=== PATIENT | female | born 1995 | race African-American/Black ===

== ENCOUNTER → 2020-04-13 | Outpatient (CLI) | payer MEDICAID ==
[2020-04-13 16:37] LABS: Basophils # (auto) 0 10 ^3/uL (0-0.2); Eosinophils # (auto) 0.1 10 ^3/uL (0-0.8); Lymphocytes # (auto) 1.5 10 ^3/uL (0.4-5.4); Monocytes # (auto) 0.3 10 ^3/uL (0-1.3); Nucleated Red Blood Cells % 0.1 %; Red Blood Cells 4.67 10^6/uL (4.0-5.20)
[2020-04-13 16:39] LABS: Basophils % (auto) 0.9 % (0.0-2.0); Eosinophils % (auto) 1.2 % (0.0-7.0); Hematocrit 28.6 % (36.0-46.0); Lymphocytes % (auto) 26.7 % (10.0-50.0); Mean Corpuscular Hemoglobin 19.2 pg (28.0-32.0); Mean Corpuscular Hgb Conc. 31.4 g/dL (32.0-36.0); Mean Corpuscular Volume 61.1 fL (80.0-100.0); Monocytes % (auto) 4.6 % (0.0-12.0); Neutrophils # (auto) 3.9 10 ^3/uL (1.6-8.6); Neutrophils % (auto) 66.6 % (37.0-80.0); Platelet Count (auto) 319 10^3/uL (140-450); White Blood Cell 5.8 10^3/uL (4.4-10.8)
[2020-04-13 16:47] LABS: Red Cell Distribution Width 22.5 % (11.8-14.3)
[2020-04-13 17:18] LABS: Alcohol, Urine < 3.0 mg/dL (0-10); Amphetamine Screen, Urine NEGATIVE (NEGATIVE); Barbiturate Scree,Urine NEGATIVE (NEGATIVE); Benzodiazephine Screen, Urine NEGATIVE (NEGATIVE); Cannabinoid Screen, Urine NEGATIVE (NEGATIVE); Cocaine Screen, Urine NEGATIVE (NEGATIVE); Opiate Scree,Urine NEGATIVE (NEGATIVE); Phencyclidine Screen, Urine NEGATIVE (NEGATIVE)
[2020-04-14 05:07] LABS: RPR Non Reactive (Non Reactive)
== END | disposition home or self-care (01) ==
LOC: LAB 15:56
PROVIDERS: ATTEND Obstetrics & Gynecology
DX: Z34.00 Encounter for supervision of normal first pregnancy, unspecified trimester (principal); Z31.430 Encounter of female for testing for genetic disease carrier status for procreative management; Z20.2 Contact with and (suspected) exposure to infections with a predominantly sexual mode of transmission; Z3A.00 Weeks of gestation of pregnancy not specified
CPT/HCPCS: 36415; 80307; 81220; 83036; 84112; 84702; 85025; 86592; 86703; 86762; 86850; 86900; 86901; 87086; 87340

== ENCOUNTER 2020-06-26 23:31 | Emergency (ER) | payer MEDICAID ==
[~2020-06-26] VITALS: Ht 160 cm; Wt 75.3 kg
[2020-06-27 00:34] LABS: Basophils # (auto) 0 10 ^3/uL (0-0.2); Basophils % (auto) 0.2 % (0.0-2.0); Eosinophils # (auto) 0 10 ^3/uL (0-0.8); Eosinophils % (auto) 0.1 % (0.0-7.0); Lymphocytes # (auto) 0.4 10 ^3/uL (0.4-5.4); Monocytes # (auto) 0.4 10 ^3/uL (0-1.3)
[2020-06-27 00:36] LABS: Hematocrit 28.5 % (36.0-46.0); Hemoglobin 9.2 g/dL (12.2-16.2); Lymphocytes % (auto) 5.4 % (10.0-50.0); Mean Corpuscular Hemoglobin 20.8 pg (28.0-32.0); Mean Corpuscular Hgb Conc. 32.2 g/dL (32.0-36.0); Mean Corpuscular Volume 64.7 fL (80.0-100.0); Monocytes % (auto) 6.5 % (0.0-12.0); Neutrophils # (auto) 5.8 10 ^3/uL (1.6-8.6); Neutrophils % (auto) 87.8 % (37.0-80.0); Nucleated Red Blood Cells % 0.1 %; Platelet Count (auto) 209 10^3/uL (140-450); Red Blood Cells 4.41 10^6/uL (4.0-5.20); White Blood Cell 6.6 10^3/uL (4.4-10.8)
[2020-06-27 00:39] LABS: Red Cell Distribution Width 20.9 % (11.8-14.3)
[2020-06-27 00:45] LABS: Urine Bacteria MANY /hpf (None Seen); Urine Blood Negative /uL (Negative); Urine Specific Gravity 1.006 (1.001-1.035); Urine WBC 215 /hpf (0 - 5); Urine WBC Clumps PRESENT /hpf (None Seen)
[2020-06-27 00:52] LABS: Albumin 3.3 g/dL (3.4-5.0); BUN/Creatinine Ratio 8.5; Calcium 9.1 mg/dL (8.5-10.1); Potassium 3.2 mmol/L (3.5-5.1)
[2020-06-27 00:55] LABS: Bilirubin, Total 0.4 mg/dL (0.2-1.0); Total Protein 8.1 g/dL (6.4-8.2)
[2020-06-27] MEDS ORDERED: SODIUM CHLORIDE 0.9% 1,000 ML IV ONE ×2 (07:15)
[2020-06-27] MEDS ORDERED: POTASSIUM EFFERVESENT TAB 25 MEQ PO ONE (07:30)
[2020-06-27 08:00] VITALS: BP 119/32
== END 2020-06-27 08:54 | disposition home or self-care (01) ==
LOC: ER 23:46
DX: O23.42 Unspecified infection of urinary tract in pregnancy, second trimester (principal); E87.6 Hypokalemia; E44.1 Mild protein-calorie malnutrition; E86.0 Dehydration; Z68.29 Body mass index [BMI] 29.0-29.9, adult; Z3A.20 20 weeks gestation of pregnancy
CPT/HCPCS: 36415; 80053; 81001; 84702; 85025; 96360; 96361

== ENCOUNTER 2020-08-03 12:41 | Inpatient (IN) | payer MEDICAID ==
[~2020-08-03] VITALS: Ht 160 cm; Wt 77.1 kg
[2020-08-03] MEDS ORDERED: CEFTRIAXONE SODIUM 2 GM in D5W 5% 50 ML IV ONE (13:30)
[2020-08-03 14:00] LABS: Urine Bacteria MOD /hpf (None Seen); Urine Blood 1+ /uL (Negative); Urine Mucus FEW (None Seen); Urine Specific Gravity 1.015 (1.001-1.035); Urine WBC 563 /hpf (0 - 5); Urine WBC Clumps PRESENT /hpf (None Seen)
[2020-08-03] MEDS: ACETAMINOPHEN 325 MG TAB PO PRN ×2 (14:24→19:43)
[2020-08-03 21:13] LABS: Basophils # (auto) 0 10 ^3/uL (0-0.2); Basophils % (auto) 0.3 % (0.0-2.0); Eosinophils # (auto) 0 10 ^3/uL (0-0.8); Monocytes # (auto) 0.9 10 ^3/uL (0-1.3); Red Cell Distribution Width 19.2 % (11.8-14.3)
[2020-08-03 21:15] LABS: Eosinophils % (auto) 0.1 % (0.0-7.0); Hematocrit 22.2 % (36.0-46.0); Hemoglobin 7.1 g/dL (12.2-16.2); Lymphocytes # (auto) 0.8 10 ^3/uL (0.4-5.4); Lymphocytes % (auto) 8.1 % (10.0-50.0); Mean Corpuscular Hemoglobin 20.4 pg (28.0-32.0); Mean Corpuscular Hgb Conc. 31.9 g/dL (32.0-36.0); Monocytes % (auto) 9.3 % (0.0-12.0); Neutrophils # (auto) 7.8 10 ^3/uL (1.6-8.6); Neutrophils % (auto) 82.2 % (37.0-80.0); Nucleated Red Blood Cells % 0.1 %; Platelet Count (auto) 327 10^3/uL (140-450); Red Blood Cells 3.47 10^6/uL (4.0-5.20); White Blood Cell 9.5 10^3/uL (4.4-10.8)
[2020-08-03] MEDS ORDERED: LACTATED RINGER'S 1,000 ML IV SCH (22:30)
[2020-08-03] MEDS ORDERED: PREN-96 PO (22:33)
[2020-08-03] MEDS ORDERED: FERROUS SULFATE 325 MG TAB PO ONE (22:45)
[2020-08-04] MEDS: ACETAMINOPHEN 325 MG TAB PO PRN (01:26)
[2020-08-04] MEDS ORDERED: SOD CHL 0.45% 1,000 ML IV SCH (06:30)
[2020-08-04] MEDS: LACTATED RINGER'S 1,000 ML IV SCH (06:56)
[2020-08-04] MEDS: FERROUS SULFATE 325 MG TAB PO SCH ×2 (07:43→18:42)
[2020-08-04] MEDS: SODIUM CHLORIDE 0.9% 1,000 ML IV SCH (07:44)
[2020-08-04] MEDS: cefTRIAXone 1GM/50ML D5W 50 ML IV SCH (07:44)
[2020-08-04] MEDS ORDERED: NIFEdipine 10 MG CAP PO ONE (08:30)
[2020-08-04] MEDS ORDERED: BETAMETHASONE ACET (6MG/ML) 5ML VIAL IM SCH (09:00)
[2020-08-04 09:42] LABS: Basophils # (auto) 0 10 ^3/uL (0-0.2); Basophils % (auto) 0.2 % (0.0-2.0); Eosinophils # (auto) 0 10 ^3/uL (0-0.8); Eosinophils % (auto) 0.1 % (0.0-7.0); Lymphocytes # (auto) 0.7 10 ^3/uL (0.4-5.4)
[2020-08-04 09:44] LABS: Hematocrit 23.9 % (36.0-46.0); Hemoglobin 7.4 g/dL (12.2-16.2); Lymphocytes % (auto) 8.4 % (10.0-50.0); Mean Corpuscular Hemoglobin 20.3 pg (28.0-32.0); Mean Corpuscular Hgb Conc. 31.2 g/dL (32.0-36.0); Mean Corpuscular Volume 65.2 fL (80.0-100.0); Monocytes # (auto) 0.6 10 ^3/uL (0-1.3); Monocytes % (auto) 6.3 % (0.0-12.0); Neutrophils # (auto) 7.4 10 ^3/uL (1.6-8.6); Nucleated Red Blood Cells % 0.1 %; Platelet Count (auto) 332 10^3/uL (140-450); Red Blood Cells 3.67 10^6/uL (4.0-5.20); Red Cell Distribution Width 19.4 % (11.8-14.3); White Blood Cell 8.8 10^3/uL (4.4-10.8)
[2020-08-04 10:02] LABS: Albumin 2.2 g/dL (3.4-5.0); Calcium 8.3 mg/dL (8.5-10.1)
[2020-08-04 10:07] LABS: BUN/Creatinine Ratio 4.8; Bilirubin, Total 0.3 mg/dL (0.2-1.0)
[2020-08-04 10:16] LABS: Potassium 2.7 mmol/L (3.5-5.1)
[2020-08-04] MEDS ORDERED: POTASSIUM CHL 20 Meq TABLET PO ONE (10:45)
[2020-08-04 12:06] VITALS: BP 107/59
[2020-08-04 12:25] VITALS: BP 107/57
[2020-08-04 14:40] VITALS: BP 116/63
[2020-08-04] MEDS: POTASSIUM CHL 20MEQ/100ML 100 ML IV SCH ×2 (15:18→17:22)
[2020-08-04 19:25] VITALS: BP 102/57
[2020-08-04 19:28] LABS: Basophils # (auto) 0 10 ^3/uL (0-0.2); Eosinophils # (auto) 0 10 ^3/uL (0-0.8); Hemoglobin 9.3 g/dL (12.2-16.2); Lymphocytes # (auto) 0.6 10 ^3/uL (0.4-5.4); Mean Corpuscular Volume 66.7 fL (80.0-100.0); Monocytes # (auto) 0.3 10 ^3/uL (0-1.3); Neutrophils # (auto) 8.5 10 ^3/uL (1.6-8.6); Nucleated Red Blood Cells % 0.1 %; White Blood Cell 9.4 10^3/uL (4.4-10.8)
[2020-08-04 19:30] LABS: Hematocrit 28.6 % (36.0-46.0); Lymphocytes % (auto) 6.7 % (10.0-50.0); Mean Corpuscular Hemoglobin 21.7 pg (28.0-32.0); Mean Corpuscular Hgb Conc. 32.5 g/dL (32.0-36.0); Monocytes % (auto) 3.2 % (0.0-12.0); Neutrophils % (auto) 90.1 % (37.0-80.0); Platelet Count (auto) 376 10^3/uL (140-450); Red Blood Cells 4.29 10^6/uL (4.0-5.20)
[2020-08-04 19:43] LABS: Red Cell Distribution Width 21.6 % (11.8-14.3)
[2020-08-04 19:49] LABS: Albumin 2.4 g/dL (3.4-5.0); Calcium 8.6 mg/dL (8.5-10.1); Potassium 3.6 mmol/L (3.5-5.1)
[2020-08-04 19:55] LABS: BUN/Creatinine Ratio 10.2; Bilirubin, Total 0.2 mg/dL (0.2-1.0); Total Protein 7.8 g/dL (6.4-8.2)
[2020-08-04 23:39] VITALS: BP 113/69
[2020-08-05] MEDS: LACTATED RINGER'S 1,000 ML IV SCH ×3 (00:55→08:33)
[2020-08-05 03:42] VITALS: BP 107/60
[2020-08-05] MEDS: cefTRIAXone 1GM/50ML D5W 50 ML IV SCH (07:15)
[2020-08-05] MEDS: SODIUM CHLORIDE 0.9% 1,000 ML IV SCH (07:16)
[2020-08-05] MEDS ORDERED: BETAMETHASONE ACET (6MG/ML) 5ML VIAL IM ONE (08:45)
[2020-08-05] MEDS: FERROUS SULFATE 325 MG TAB PO SCH (09:01)
== END 2020-08-05 09:50 | disposition home or self-care (01) | DRG 566 ==
LOC: LDRP 12:41 → OBSVTOIN 12:41 → LDRP 13:55
PROVIDERS: ADMIT Specialist; ATTEND Specialist
PROC: 30233N1 Transfusion of Nonautologous Red Blood Cells into Peripheral Vein, Percutaneous Approach (ICD-10-PCS; principal; 2020-08-04)
DX: O23.02 Infections of kidney in pregnancy, second trimester (principal); O99.282 Endocrine, nutritional and metabolic diseases complicating pregnancy, second trimester; Z3A.25 25 weeks gestation of pregnancy; E87.6 Hypokalemia; O99.012 Anemia complicating pregnancy, second trimester
CPT/HCPCS: 36415; 59025; 80053; 81001; 81002; 85025; 86850; 86900; 86901; 86920; 87086; 87088; 87186; 94760; 94762; 96360; 96361; 96365; 96366; 96372; G0378; J0696; J3480; J7060

== ENCOUNTER 2020-11-13 17:04 | Inpatient (IN) | payer MEDICAID ==
[~2020-11-13] VITALS: Ht 160 cm; Wt 85.3 kg
[~2020-11-13 17:04] MED LIST: PREN-96 PO
[2020-11-13] MEDS ORDERED: LACT. RINGERS/OXYTOCIN 20UNITS 1,000 ML IV ONE (20:30)
[2020-11-13] MEDS ORDERED: PHISODERM TOP SOLN 240ML BTL TOP PRN (20:30)
[2020-11-13] MEDS ORDERED: LIDOCAINE 2%HCL (LOCAL ANESTH.) INJ 20ML MDV IJ ONE (20:30)
[2020-11-13] MEDS ORDERED: WITCH HAZEL-GLYCERIN PAD TOP PRN (20:30)
[2020-11-13] MEDS ORDERED: ONDANSETRON HCL 4 MG/2 ML VIAL IV PRN (20:30)
[2020-11-13] MEDS ORDERED: DERMOPLAST 60ML BOTTLE TOP PRN (20:30)
[2020-11-13] MEDS: LACTATED RINGER'S 1,000 ML IV SCH ×2 (21:27→22:41)
[2020-11-13 21:42] LABS: Urine Bacteria NONE SEEN /hpf (None Seen); Urine Blood TRACE /uL (Negative); Urine Mucus FEW (None Seen); Urine Specific Gravity 1.013 (1.001-1.035); Urine WBC 4 /hpf (0 - 5)
[2020-11-13] MEDS ORDERED: NALOXONE HCL 0.4 MG/ML VIAL IV ONE ×2 (21:45→23:00)
[2020-11-13] MEDS ORDERED: LACTATED RINGER'S 1,000 ML IV ONE ×2 (21:45→23:00)
[2020-11-13] MEDS ORDERED: fentaNYL CITRATE 100 MCG/2 ML VL IV ONE ×2 (21:45→23:00)
[2020-11-13] MEDS ORDERED: ROPIVACAINE HCL 200 ML EPI SCH ×2 (21:45→23:00)
[2020-11-13] MEDS ORDERED: ePHEDrine SULFATE 50 MG/ML AMP IV ONE ×2 (21:45→23:00)
[2020-11-13] MEDS ORDERED: LIDOCAINE HCL 2 %PF INJ 10ML AMP IJ ONE ×2 (21:45→23:00)
[2020-11-13 21:50] LABS: Albumin 2.8 g/dL (3.4-5.0); Calcium 9.1 mg/dL (8.5-10.1); INR 0.99 (0.9-1.15); Partial Thromboplastin Time 31.4 sec (23.0-31.2); Potassium 3.5 mmol/L (3.5-5.1); Uric Acid 4.1 mg/dL (2.6-6.0)
[2020-11-13 21:54] LABS: BUN/Creatinine Ratio 15.2; Bilirubin, Total 0.4 mg/dL (0.2-1.0); Total Protein 7.8 g/dL (6.4-8.2)
[2020-11-13 21:55] LABS: Basophils # (auto) 0 10 ^3/uL (0-0.2); Eosinophils # (auto) 0 10 ^3/uL (0-0.8); Hemoglobin 12.1 g/dL (12.2-16.2); Lymphocytes # (auto) 0.9 10 ^3/uL (0.4-5.4); Monocytes # (auto) 0.3 10 ^3/uL (0-1.3); Red Blood Cells 4.57 10^6/uL (4.0-5.20)
[2020-11-13 21:57] LABS: Basophils % (auto) 0.1 % (0.0-2.0); Hematocrit 35.6 % (36.0-46.0); Lymphocytes % (auto) 9.4 % (10.0-50.0); Mean Corpuscular Hemoglobin 26.4 pg (28.0-32.0); Mean Corpuscular Volume 77.7 fL (80.0-100.0); Monocytes % (auto) 3.3 % (0.0-12.0); Neutrophils # (auto) 8.7 10 ^3/uL (1.6-8.6); Neutrophils % (auto) 87.2 % (37.0-80.0); Platelet Count (auto) 211 10^3/uL (140-450); Red Cell Distribution Width 18.3 % (11.8-14.3)
[2020-11-14] VITALS (18 sets, daily range): BP systolic 102–128; BP diastolic 59–84
[2020-11-14] MEDS ORDERED: fentaNYL CITRATE 100 MCG/2 ML VL IV ONE (03:30)
[2020-11-14] MEDS ORDERED: ceFAZolin 1GM/50ML 50 ML IV ONE ×2 (06:20→06:30)
[2020-11-14] MEDS ORDERED: MORPHINE SULF(PF) 0.5MG/ML 10ML VIAL ONE (06:38)
[2020-11-14] MEDS ORDERED: ePHEDrine SULFATE 50 MG/ML AMP ONE (06:38)
[2020-11-14] MEDS ORDERED: KETOROLAC TROMETH 30 MG/ML 1ML VIAL ONE (06:38)
[2020-11-14] MEDS ORDERED: oxyTOCIN 10 UNIT/ML 10ML VIAL ONE (06:38)
[2020-11-14] MEDS ORDERED: LIDOCAINE HCL 2 %PF INJ 10ML AMP IJ ONE (06:38)
[2020-11-14] MEDS ORDERED: ONDANSETRON HCL 4 MG/2 ML VIAL ONE (06:38)
[2020-11-14] MEDS ORDERED: GLYCOPYRROLATE 0.2 MG/ML 1ML VIAL ONE (06:38)
[2020-11-14] MEDS ORDERED: fentaNYL CITRATE 100 MCG/2 ML VL ONE (07:08)
[2020-11-14] MEDS ORDERED: MIDAZOLAM HCL 1MG/1ML-2 ML VIAL ONE (07:29)
[2020-11-14] MEDS ORDERED: ONDANSETRON HCL 4 MG/2 ML VIAL IV PRN ×3 (08:00→08:15)
[2020-11-14] MEDS ORDERED: GUM (CHEWING) 1 GUM CHEW CHEW ONE (08:00)
[2020-11-14] MEDS ORDERED: ACETAMINOPHEN IV 1000 MG/100ML (10MG/ML) IV PRN (08:00)
[2020-11-14] MEDS ORDERED: HYDROmorphone HCL 2 MG/ML VL IV PRN (08:00)
[2020-11-14] MEDS ORDERED: ceFAZolin 1GM/50ML 50 ML IV SCH (08:00)
[2020-11-14] MEDS ORDERED: KETOROLAC TROMETH 30 MG/ML 1ML VIAL IV PRN (08:15)
[2020-11-14] MEDS ORDERED: diphenhdrAMINE HCL 50 MG/1 ML VL IV PRN (08:15)
[2020-11-14] MEDS ORDERED: DexAMETHasone SOD PHOS 10MG/1ML VIAL INJ IV PRN (08:15)
[2020-11-14] MEDS ORDERED: NALOXONE HCL 0.4 MG/ML VIAL IV PRN (08:15)
[2020-11-14] MEDS ORDERED: NALBUPHINE HCL 10 MG/1ml INJECTION SUBCUT ONE (08:15)
[2020-11-14] MEDS: LACTATED RINGER'S 1,000 ML IV SCH ×3 (08:45→20:14)
[2020-11-14] MEDS: ceFAZolin 1GM/50ML 50 ML IV SCH ×2 (14:00→22:10)
[2020-11-14] MEDS ORDERED: ACETAMINOPHEN 325 MG TAB PO PRN (20:00)
[2020-11-14] MEDS ORDERED: HYDROcodone-ACET 5/325MG TAB PO PRN (20:00)
[2020-11-14] MEDS: IBUPROFEN 600 MG TAB PO PRN (22:11)
[2020-11-15] VITALS (36 sets, daily range): BP systolic 86–121; BP diastolic 37–75
[2020-11-15] MEDS: IBUPROFEN 600 MG TAB PO PRN (03:46)
[2020-11-15] MEDS: LACTATED RINGER'S 1,000 ML IV SCH (03:46)
[2020-11-15] MEDS: SODIUM CHLORIDE 0.9% 1,000 ML IV SCH ×2 (04:45→22:04)
[2020-11-15 05:07] LABS: RPR Non Reactive (Non Reactive)
[2020-11-15] MEDS: ceFAZolin 1GM/50ML 50 ML IV SCH (05:49)
[2020-11-15] MEDS ORDERED: HYDROcodone-ACET 5/325MG TAB PO PRN (06:45)
[2020-11-15] MEDS: IBUPROFEN 800 MG TAB PO PRN ×2 (07:08→14:51)
[2020-11-15 07:38] LABS: Basophils # (auto) 0 10 ^3/uL (0-0.2); Eosinophils # (auto) 0 10 ^3/uL (0-0.8); Hemoglobin 9.2 g/dL (12.2-16.2); Monocytes # (auto) 0.5 10 ^3/uL (0-1.3); White Blood Cell 8.1 10^3/uL (4.4-10.8)
[2020-11-15 07:40] LABS: Basophils % (auto) 0.1 % (0.0-2.0); Eosinophils % (auto) 0.2 % (0.0-7.0); Hematocrit 26.7 % (36.0-46.0); Lymphocytes # (auto) 0.9 10 ^3/uL (0.4-5.4); Lymphocytes % (auto) 11.1 % (10.0-50.0); Mean Corpuscular Hemoglobin 27.1 pg (28.0-32.0); Mean Corpuscular Hgb Conc. 34.4 g/dL (32.0-36.0); Mean Corpuscular Volume 78.8 fL (80.0-100.0); Monocytes % (auto) 6.6 % (0.0-12.0); Neutrophils # (auto) 6.7 10 ^3/uL (1.6-8.6); Platelet Count (auto) 149 10^3/uL (140-450); Red Blood Cells 3.39 10^6/uL (4.0-5.20); Red Cell Distribution Width 17.4 % (11.8-14.3)
[2020-11-15] MEDS: DOCUSATE SOD 100 MG CAP PO SCH ×2 (09:31→22:03)
[2020-11-15] MEDS: HYDROcodone-ACET 5/325MG TAB PO PRN ×2 (11:05→11:29)
[2020-11-15 16:06] LABS: Basophils # (auto) 0 10 ^3/uL (0-0.2); Eosinophils # (auto) 0 10 ^3/uL (0-0.8); Eosinophils % (auto) 0.2 % (0.0-7.0); Hemoglobin 9.4 g/dL (12.2-16.2); Lymphocytes # (auto) 0.6 10 ^3/uL (0.4-5.4); Monocytes # (auto) 0.5 10 ^3/uL (0-1.3); Neutrophils # (auto) 7.2 10 ^3/uL (1.6-8.6); White Blood Cell 8.4 10^3/uL (4.4-10.8)
[2020-11-15] MEDS: PIPERACILLIN-TAZOB 3.375GM 100 ML IV SCH ×2 (16:07→22:03)
[2020-11-15 16:09] LABS: Basophils % (auto) 0.2 % (0.0-2.0); Hematocrit 27.5 % (36.0-46.0); Lymphocytes % (auto) 7.7 % (10.0-50.0); Mean Corpuscular Hemoglobin 27.3 pg (28.0-32.0); Mean Corpuscular Hgb Conc. 34.2 g/dL (32.0-36.0); Mean Corpuscular Volume 79.8 fL (80.0-100.0); Monocytes % (auto) 5.6 % (0.0-12.0); Neutrophils % (auto) 86.3 % (37.0-80.0); Platelet Count (auto) 155 10^3/uL (140-450); Red Blood Cells 3.44 10^6/uL (4.0-5.20); Red Cell Distribution Width 17.6 % (11.8-14.3)
[2020-11-15] MEDS: ACETAMINOPHEN 325 MG TAB PO PRN ×2 (17:24→21:22)
[2020-11-16] VITALS (7 sets, daily range): BP systolic 109–129; BP diastolic 55–76
[2020-11-16] MEDS: IBUPROFEN 800 MG TAB PO PRN ×3 (01:30→17:50)
[2020-11-16] MEDS: ACETAMINOPHEN 325 MG TAB PO PRN ×3 (02:43→16:09)
[2020-11-16] MEDS: PIPERACILLIN-TAZOB 3.375GM 100 ML IV SCH ×4 (03:58→22:12)
[2020-11-16 05:07] LABS: Basophils # (auto) 0 10 ^3/uL (0-0.2); Basophils % (auto) 0.2 % (0.0-2.0); Eosinophils # (auto) 0 10 ^3/uL (0-0.8); Eosinophils % (auto) 0.2 % (0.0-7.0); Hematocrit 26.6 % (36.0-46.0); Lymphocytes # (auto) 0.6 10 ^3/uL (0.4-5.4); Mean Corpuscular Hemoglobin 27.1 pg (28.0-32.0); Mean Corpuscular Volume 79.6 fL (80.0-100.0); Monocytes # (auto) 0.5 10 ^3/uL (0-1.3); Monocytes % (auto) 5.6 % (0.0-12.0); Neutrophils # (auto) 7.5 10 ^3/uL (1.6-8.6); Platelet Count (auto) 148 10^3/uL (140-450); Red Blood Cells 3.34 10^6/uL (4.0-5.20); Red Cell Distribution Width 17.1 % (11.8-14.3); White Blood Cell 8.6 10^3/uL (4.4-10.8)
[2020-11-16] MEDS: SODIUM CHLORIDE 0.9% 1,000 ML IV SCH ×4 (06:56→22:13)
[2020-11-16] MEDS: DOCUSATE SOD 100 MG CAP PO SCH ×2 (09:43→22:12)
[2020-11-16 09:46] LABS: BUN/Creatinine Ratio 12.2; Calcium 7.5 mg/dL (8.5-10.1)
[2020-11-16] MEDS: POTASSIUM CHL 20MEQ/100ML 100 ML IV SCH ×2 (13:37→16:09)
[2020-11-17] MEDS ORDERED: IRON SUCROSE COMPLEX 200 MG in SODIUM CHL 0.9% 100 ML IV SCH (00:30)
[2020-11-17] MEDS: ACETAMINOPHEN 325 MG TAB PO PRN (02:42)
[2020-11-17 03:30] VITALS: BP 120/84
[2020-11-17] MEDS: PIPERACILLIN-TAZOB 3.375GM 100 ML IV SCH ×4 (04:00→22:14)
[2020-11-17] MEDS: SODIUM CHLORIDE 0.9% 1,000 ML IV SCH ×3 (07:15→22:18)
[2020-11-17] MEDS: IBUPROFEN 800 MG TAB PO PRN ×2 (07:20→17:55)
[2020-11-17 07:30] VITALS: BP 115/74
[2020-11-17] MEDS: DOCUSATE SOD 100 MG CAP PO SCH ×2 (10:00→22:14)
[2020-11-17] MEDS ORDERED: POTASSIUM CHL 20 Meq TABLET PO ONE (11:15)
[2020-11-17 11:30] VITALS: BP 121/67
[2020-11-17 15:00] VITALS: BP 125/75
[2020-11-17 19:30] VITALS: BP 129/75
[2020-11-17 23:00] VITALS: BP 116/65
[2020-11-18 03:00] VITALS: BP 128/80
[2020-11-18] MEDS: SODIUM CHLORIDE 0.9% 1,000 ML IV SCH (03:15)
[2020-11-18] MEDS: PIPERACILLIN-TAZOB 3.375GM 100 ML IV SCH ×3 (03:56→21:07)
[2020-11-18] MEDS: IBUPROFEN 800 MG TAB PO PRN ×2 (03:56→14:05)
[2020-11-18 04:54] LABS: Basophils # (auto) 0 10 ^3/uL (0-0.2); Basophils % (auto) 0.4 % (0.0-2.0); Eosinophils # (auto) 0.1 10 ^3/uL (0-0.8); Eosinophils % (auto) 2.7 % (0.0-7.0); Hematocrit 23.9 % (36.0-46.0); Hemoglobin 8.1 g/dL (12.2-16.2); Lymphocytes # (auto) 1.2 10 ^3/uL (0.4-5.4); Lymphocytes % (auto) 21.7 % (10.0-50.0); Mean Corpuscular Hgb Conc. 33.9 g/dL (32.0-36.0); Mean Corpuscular Volume 79.9 fL (80.0-100.0); Monocytes # (auto) 0.4 10 ^3/uL (0-1.3); Neutrophils # (auto) 3.6 10 ^3/uL (1.6-8.6); Neutrophils % (auto) 67.2 % (37.0-80.0); Nucleated Red Blood Cells % 0.1 %; Platelet Count (auto) 175 10^3/uL (140-450); Red Blood Cells 2.99 10^6/uL (4.0-5.20); White Blood Cell 5.3 10^3/uL (4.4-10.8)
[2020-11-18] MEDS ORDERED: VANCOMYCIN PER PHARMACY 0 MG IV SCH (07:15)
[2020-11-18] MEDS ORDERED: POTASSIUM CHL 20 Meq TABLET PO ONE (07:15)
[2020-11-18 07:25] VITALS: BP 132/80
[2020-11-18] MEDS ORDERED: VANCOMYCIN 1GM/250ML 250 ML IV ONE (07:45)
[2020-11-18] MEDS: DOCUSATE SOD 100 MG CAP PO SCH ×2 (10:00→21:57)
[2020-11-18] MEDS: MAGNESIUM SULFATE 1GM/100ML 100 ML IV SCH ×4 (11:11→15:14)
[2020-11-18 11:15] VITALS: BP 139/81
[2020-11-18 15:25] VITALS: BP 128/77
[2020-11-18] MEDS: POTASSIUM CHL 20MEQ/100ML 100 ML IV SCH ×2 (17:31→21:00)
[2020-11-18 19:00] VITALS: BP 142/90
[2020-11-18 23:00] VITALS: BP 131/55
[2020-11-19] MEDS: PIPERACILLIN-TAZOB 3.375GM 100 ML IV SCH ×2 (02:01→08:06)
[2020-11-19 03:00] VITALS: BP 143/79
[2020-11-19] MEDS: ACETAMINOPHEN 325 MG TAB PO PRN (03:38)
[2020-11-19] MEDS: SODIUM CHLORIDE 0.9% 1,000 ML IV SCH (04:33)
[2020-11-19 07:15] VITALS: BP 135/75
[2020-11-19 07:27] LABS: Basophils # (auto) 0 10 ^3/uL (0-0.2); Eosinophils # (auto) 0.1 10 ^3/uL (0-0.8); Lymphocytes # (auto) 1.1 10 ^3/uL (0.4-5.4); Monocytes # (auto) 0.4 10 ^3/uL (0-1.3)
[2020-11-19 07:29] LABS: Basophils % (auto) 0.3 % (0.0-2.0); Eosinophils % (auto) 1.9 % (0.0-7.0); Hematocrit 23.5 % (36.0-46.0); Lymphocytes % (auto) 20.1 % (10.0-50.0); Mean Corpuscular Hgb Conc. 34.1 g/dL (32.0-36.0); Mean Corpuscular Volume 79.2 fL (80.0-100.0); Neutrophils # (auto) 3.7 10 ^3/uL (1.6-8.6); Neutrophils % (auto) 69.7 % (37.0-80.0); Nucleated Red Blood Cells % 0.1 %; Platelet Count (auto) 199 10^3/uL (140-450); Red Blood Cells 2.96 10^6/uL (4.0-5.20); Red Cell Distribution Width 16.8 % (11.8-14.3); White Blood Cell 5.3 10^3/uL (4.4-10.8)
[2020-11-19 07:48] LABS: Calcium 8.4 mg/dL (8.5-10.1); Potassium 3.4 mmol/L (3.5-5.1)
[2020-11-19 07:53] LABS: BUN/Creatinine Ratio 15.8
[2020-11-19] MEDS ORDERED: POTASSIUM CHL 20 Meq TABLET PO ONE (08:00)
[2020-11-19] MEDS ORDERED: CEPH250C PO ×2 (09:22→09:23)
[2020-11-19] MEDS ORDERED: HYDR-4902 PO (09:27)
== END 2020-11-19 12:25 | disposition home or self-care (01) | DRG 540 ==
LOC: LDRP 17:04 → OBSVTOIN 20:20 → LDRP 20:21
PROVIDERS: ADMIT Specialist; ATTEND Specialist
PROC: 10D00Z1 Extraction of Products of Conception, Low, Open Approach (ICD-10-PCS; principal; 2020-11-14 07:00)
DX: O76 Abnormality in fetal heart rate and rhythm complicating labor and delivery (principal); O77.0 Labor and delivery complicated by meconium in amniotic fluid; D50.9 Iron deficiency anemia, unspecified; O99.02 Anemia complicating childbirth; O99.214 Obesity complicating childbirth; E66.01 Morbid (severe) obesity due to excess calories; O99.284 Endocrine, nutritional and metabolic diseases complicating childbirth; O26.53 Maternal hypotension syndrome, third trimester; E87.6 Hypokalemia; E83.42 Hypomagnesemia; Z20.822 Contact with and (suspected) exposure to COVID-19; Z37.0 Single live birth; Z3A.40 40 weeks gestation of pregnancy; B95.2 Enterococcus as the cause of diseases classified elsewhere; R78.81 Bacteremia; O98.82 Other maternal infectious and parasitic diseases complicating childbirth
CPT/HCPCS: 36415; 36600; 59025; 62282; 76818; 80048; 80053; 81001; 81002; 82805; 83735; 84132; 84550; 85025; 85610; 85730; 86592; 86850; 86900; 86901; 86920; 87040; 87077; 87186; 87426; 93306; 94760; 94762; 96360; 96361; 96374; G0378; J0131; J0690; J1756; J1885; J2250; J2405; J2543; J2590; J3480